=== PATIENT | male | born 1955 ===

== ENCOUNTER 2016-11-29 09:30 | Outpatient (CLI) | payer OTHER ==
[2016-11-29 12:55] LABS: #Eosinphils 0.1 thou/uL (0.0-0.7); #Lymphocytes 1.6 thou/uL (1.20-3.40); #Monocytes 0.3 thou/uL (0.11-0.59); #Neutrophils 1.6 thou/uL (1.40-6.50); %Eosinophils 2.1 % (0.0-10.0); %Lymphocytes 44.2 % (21.0-51.0); %Monocytes 7.2 % (0.0-10.0); Hematocrit 41.5 % (42.0-52.0); Red Blood Cell (RBC) Count 4.45 mill/uL (4.70-6.10); White Blood Cell (WBC) Count 3.5 thou/uL (4.8-10.8)
[2016-11-29 13:16] LABS: Hemoglobin A1c 6.1 % (4.0-6.0)
[2016-11-29 13:27] LABS: ALT (SGPT) 26 U/L (0-55); AST (SGOT) 27 U/L (5-34); Alkaline Phosphatase 38 U/L (40-150); Anion Gap 16 mmol/L (10-20); BUN (Urea Nitrogen) 21 mg/dL (8.4-25.7); Bilirubin, Direct 0.1 mg/dL (0.1-0.3); Bilirubin, Total 0.4 mg/dL (0.2-1.2); Calc. Creatinine Clearance 0 mL/min (70-130); Calcium 9.6 mg/dL (7.8-10.44); Carbon Dioxide 24 mmol/L (22-29); Chloride 107 mmol/L (98-107); Estimated GFR-MDRD 58; LDL Cholesterol, Calculated 132 mg/dL; Protein, Total 7.7 g/dL (6.0-8.3)
== END 2016-11-29 09:31 | disposition home or self-care (01) ==
LOC: NAVSJIPCSP 09:30
PROVIDERS: ATTEND Family Medicine
DX: E11.9 Type 2 diabetes mellitus without complications (principal); E03.9 Hypothyroidism, unspecified; E78.5 Hyperlipidemia, unspecified; Z79.899 Other long term (current) drug therapy
CPT/HCPCS: 36415; 80048; 80061; 80076; 83036; 84443; 85025